=== PATIENT | male | born 1945 | race Caucasian/White ===

== ENCOUNTER 2019-12-17 15:52 | Emergency (ER) | payer OTHER ==
[~2019-12-17] VITALS: Ht 182.9 cm; Wt 99.3 kg
[2019-12-17] MEDS ORDERED: CLONIDINE HCL0.2 M2 PO (16:06)
[2019-12-17] MEDS ORDERED: LIPITOR40 MG PO (16:07)
[2019-12-17] MEDS ORDERED: WELLBUTRIN SR150 MG PO (16:07)
[2019-12-17] MEDS ORDERED: ADVAIR 250-501 EACH INH (16:07)
[2019-12-17] MEDS ORDERED: CIALIS5 MG PO (16:07)
[2019-12-17] MEDS ORDERED: ANDROGEL1.25 GM TOP (16:08)
[2019-12-17 16:30] LABS: INFLUENZA A ANTIGEN Negative (Negative); INFLUENZA B ANTIGEN Negative (Negative)
[2019-12-17] MEDS ORDERED: TAMIFLU75 MG PO (16:32)
[2019-12-17] MEDS ORDERED: MEDROLDOSEPACK PO (16:32)
[2019-12-17] MEDS ORDERED: VENTOLIN HFA 1818 GM INH (16:37)
[2019-12-17 16:49] VITALS: BP 160/71
== END 2019-12-17 16:51 | disposition home or self-care (01) ==
LOC: M.ERS 15:52
PROVIDERS: Nurse Practitioner Family
DX: J21.9 Acute bronchiolitis, unspecified (principal); I10 Essential (primary) hypertension; E78.00 Pure hypercholesterolemia, unspecified; Z98.890 Other specified postprocedural states